=== PATIENT | female | born 1985 | race Two or more races ===

== ENCOUNTER 2017-09-08 20:37 | Emergency (ER) | payer MEDICAID ==
[~2017-09-08] VITALS: Ht 157.5 cm; Wt 67.2 kg
[2017-09-08] MEDS ORDERED: ONDANSETRON 2MG/ML, 2ML IVPush ONE (21:00)
[2017-09-08] MEDS ORDERED: SODIUM CHLORIDE FLUSH 10ML SYR IVF ONE (21:00)
[2017-09-08] MEDS ORDERED: FAMOTIDINE 20 MG/2 ML IVP ONE (21:00)
[2017-09-08] MEDS ORDERED: SODIUM CHLORIDE 0.9% 1,000ML IVBOLUS ONE (21:00)
[2017-09-08 21:25] LABS: HEMATOCRIT 40.6 % (34.6-47.8); HEMOGLOBIN 13.7 g/dL (11.7-16.4); WHITE BLOOD COUNT 8.3 x10^3/uL (3.4-10)
[2017-09-08 21:36] LABS: BLOOD UREA NITROGEN 6 mg/dL (7-18)
[2017-09-08 21:40] LABS: ASPARTATE AMINO TRANSFERASE 8 U/L (15-37)
[2017-09-08] MEDS ORDERED: ONDANSETRON 2MG/ML, 2ML ONE (22:03)
[2017-09-08] MEDS ORDERED: FAMOTIDINE 20 MG/2 ML ONE (22:04)
[2017-09-09 01:09] VITALS: BP 106/61
[2017-09-09] MEDS ORDERED: ACETAMINOPHEN 500 MG TABLET ONE (01:13)
[2017-09-09] MEDS ORDERED: ACETAMINOPHEN 500 MG TABLET PO ONE (01:30)
== END 2017-09-09 01:47 | disposition home or self-care (01) ==
LOC: ED 22:28
DX: O99.282 Endocrine, nutritional and metabolic diseases complicating pregnancy, second trimester (principal); E86.0 Dehydration; Z3A.16 16 weeks gestation of pregnancy
CPT/HCPCS: 36415; 80053; 81001; 83690; 85025; 87086; 96361; 96374; 96375; 99284; J2405; J7030; S0028

== ENCOUNTER 2019-10-18 23:14 | Emergency (ER) | payer MEDICAID, OTHER ==
[~2019-10-18] VITALS: Ht 170.2 cm; Wt 69.3 kg
--- NOTE | 2019-10-18 23:39 | NUR ---
PT HERE WITH C/O NAUSEA AND ABDOMINAL PAIN (EPIGASTRIC) DIRECTLY AFTER EATING. PT STATES X 1 WEEK APPROX. PT DENIES ANY MEDICAL HX OR DAILY MEDICATIONS. PT AAO X 4, NAD, ROOM AIR, DRESSED IN GOWN AND ATTACHED TO MONITOR. CALL LIGHT WITHIN REACH AND FAMILY AT BEDSIDE. PT GAMBIAN SPEAKING ONLY BUT FAMILY AT BEDSIDE TO TRANSLATE.
[2019-10-18 23:48] LABS: MICROSCOPIC NOT IND
--- NOTE | 2019-10-18 23:54 | NUR ---
PT STATING PAIN IS NOW IN BOTH LEFT AND RIGHT LOWER QUADRANT. MD AT BEDSIDE FOR EXAM.
[2019-10-19] MEDS ORDERED: MORPHINE SULFATE 4 MG/ML, 1ML IVPush PRN
[2019-10-19] MEDS ORDERED: ONDANSETRON 2MG/ML, 2ML IVPush ONE
[2019-10-19 00:04] LABS: CULTURE INDICATED? NO
--- NOTE | 2019-10-19 00:11 | NUR ---
UA SENT BY THIS RN. REPORT GIVEN TO ONCOMING RN, CARE TRANSFERRED.
[2019-10-19 00:14] LABS: BASOPHILS # (AUTO) 0.06 x10^3/uL (0-0.1); BASOPHILS % (AUTO) 1 % (0-1); EOSINOPHILS # (AUTO) 0.07 x10^3/uL (0-0.4); EOSINOPHILS % (AUTO) 1 % (1-7); LYMPHOCYTES # (AUTO) 2.55 x10^3/uL (1-3.4); LYMPHOCYTES % (AUTO) 41 % (22-44); MD NO; MEAN CORPUSCULAR HEMOGLOBIN 23.4 pg (27.0-34.8); MEAN CORPUSCULAR HGB CONC 31.3 g/dL (32.4-35.8); MEAN CORPUSCULAR VOLUME 74.7 fL (80-100); MEAN PLATELET VOLUME 9.1 fL (7.4-10.4); MONOCYTES # (AUTO) 0.47 x10^3/uL (0.2-0.8); MONOCYTES % (AUTO) 8 % (2-9); NEUTROPHILS # (AUTO) 3.07 x10^3/uL (1.8-6.8); NEUTROPHILS % (AUTO) 49 % (42-75); PLATELET COUNT 256 x10^3/uL (130-400); RED BLOOD COUNT 4.15 x10^6/uL (3.82-5.3); RED CELL DISTRIBUTION WIDTH 18.1 % (9.6-15.2)
--- NOTE | 2019-10-19 00:21 | NUR ---
TASK RN: PT TO US.
[2019-10-19 00:24] LABS: ALANINE AMINOTRANSFERASE 20 U/L (12-78); ALBUMIN 3.5 g/dL (3.4-5.0); ANION GAP 6 mmol/L (5-15); CALCIUM 8.6 mg/dL (8.5-10.1); CHLORIDE 108 mmol/L (98-107); CREATININE 0.53 mg/dL (0.55-1.02)
[2019-10-19 00:41] LABS: ALKALINE PHOSPHATASE 43 U/L (45-117); BILIRUBIN,TOTAL 0.2 mg/dL (0.2-1.0); TOTAL PROTEIN 6.7 g/dL (6.4-8.2)
[2019-10-19] MEDS ORDERED: MORPHINE SULFATE 4 MG/ML, 1ML ONE (01:20)
[2019-10-19] MEDS ORDERED: ONDANSETRON 2MG/ML, 2ML ONE (01:20)
--- NOTE | 2019-10-19 01:40 | NUR ---
IV STARTED. PT MEDICATED FOR PAIN AND NAUSEA PER EMAR. WILL CONTINUE TO MONITOR.
--- NOTE | 2019-10-19 02:25 | NUR ---
PT STATED SHE FEELS BETTER AFTER RECIEVING MEDS. STATED STILL IS HAVING SOME INTERMITTANT PINCHING IN LEFT LOWER ADB/GROIN AREA. STILL AWAITING US READS, WILL CONTINUE TO MONITOR.
--- NOTE | 2019-10-19 03:27 | NUR ---
PT CONTINUES TO REST EASY IN BED. NO STATED NEEDS AT THIS TIME. WILL CONTINUE TO MONITOR. FAMILY AT BEDSIDE. VSS.
--- NOTE | 2019-10-19 04:31 | NUR ---
PT CONTINUES TO REST COMFORTABLY IN BED. NO STATED NEEDS. PT AWAITING PAPER ROLLER TO SEE HER.
--- NOTE | 2019-10-19 05:10 | NUR ---
DIRECTOR [employer] HAS EVALED AND SEEN PT. PT UP FOR RECHECK.
[2019-10-19 06:13] VITALS: BP 96/53
== END 2019-10-19 06:20 | disposition home or self-care (01) ==
LOC: ED 23:59
DX: O02.1 Missed abortion (principal)
CPT/HCPCS: 36415; 76700; 76830; 80053; 81003; 83690; 84702; 84703; 85025; 86901; 96374; 96375; 99284; J2270; J2405

== ENCOUNTER 2019-10-21 10:36 | Emergency (ER) | payer SELFPAY ==
[~2019-10-21] VITALS: Ht 152.4 cm; Wt 68.6 kg
--- NOTE | 2019-10-21 11:28 | NUR ---
pt to us now
[2019-10-21 11:48] LABS: MICROSCOPIC NOT IND
[2019-10-21 11:53] LABS: CULTURE INDICATED? NO
[2019-10-21 12:19] VITALS: BP 106/62
[2019-10-21 12:31] LABS: MEAN CORPUSCULAR HEMOGLOBIN 22.8 pg (27.0-34.8); MEAN CORPUSCULAR VOLUME 73.5 fL (80-100); PLATELET COUNT 256 x10^3/uL (130-400); RED BLOOD COUNT 4.45 x10^6/uL (3.82-5.3); RED CELL DISTRIBUTION WIDTH 18.2 % (9.6-15.2)
[2019-10-21 12:35] LABS: ALBUMIN 3.7 g/dL (3.4-5.0); ANION GAP 3 mmol/L (5-15); CALCIUM 8.4 mg/dL (8.5-10.1); CHLORIDE 109 mmol/L (98-107)
[2019-10-21 12:50] LABS: ANISOCYTOSIS 1+; BASOPHILS # (AUTO) 0.03 x10^3/uL (0-0.1); BASOPHILS % (AUTO) 1 % (0-1); EOSINOPHILS # (AUTO) 0.02 x10^3/uL (0-0.4); EOSINOPHILS % (AUTO) 0 % (1-7); LYMPHOCYTES # (AUTO) 1.59 x10^3/uL (1-3.4); LYMPHOCYTES % (AUTO) 34 % (22-44); MD MORPH REVIEW ONLY; MICROCYTOSIS 1+; MONOCYTES # (AUTO) 0.33 x10^3/uL (0.2-0.8); MONOCYTES % (AUTO) 7 % (2-9); NEUTROPHILS # (AUTO) 2.77 x10^3/uL (1.8-6.8); NEUTROPHILS % (AUTO) 59 % (42-75); OVALOCYTES 1+
[2019-10-21 12:51] LABS: TEAR DROPS 1+
[2019-10-21 12:52] LABS: <PLATELET ESTIMATE> ADEQUATE; <PLT MORPHOLOGY> NORMAL PLT MORPH; HYPOCHROMIA 2+
[2019-10-21 12:53] LABS: CREATININE 0.51 mg/dL (0.55-1.02)
== END 2019-10-21 13:51 | disposition home or self-care (01) ==
LOC: ED 10:45
DX: O26.891 Other specified pregnancy related conditions, first trimester (principal); R10.30 Lower abdominal pain, unspecified; Z3A.01 Less than 8 weeks gestation of pregnancy
CPT/HCPCS: 36415; 76801; 80048; 81003; 82040; 84702; 85025; 99284